=== PATIENT | female | born 1980 | race Caucasian/White ===

== ENCOUNTER 2023-02-09 00:10 | Inpatient (IN) | payer OTHER ==
[2023-02-09] MEDS ORDERED: Carboprost 250 MCG/ML AMP IM PRN (00:29)
[2023-02-09] MEDS ORDERED: hydrALAZINE 20 MG/ML VIAL SLOW IVP PRN ×2 (00:29→07:22)
[2023-02-09] MEDS ORDERED: Fentanyl 100 MCG/2 ML VIAL SLOW IVP PRN (00:29)
[2023-02-09] MEDS ORDERED: Tranexamic Acid 1,000 MG in Sodium Chloride 0.9% 250 ML 250 ML IVPB PRN (00:29)
[2023-02-09] MEDS ORDERED: Ondansetron PF 4 MG/2 ML Vial IVP PRN ×2 (00:29→01:39)
[2023-02-09] MEDS ORDERED: Acetaminophen 500 MG TAB PO PRN (00:29)
[2023-02-09] MEDS ORDERED: Ibuprofen 800 MG TAB PO PRN (00:29)
[2023-02-09] MEDS ORDERED: Promethazine HCl 25 MG/ML VIAL IM PRN ×2 (00:29→01:39)
[2023-02-09] MEDS ORDERED: Misoprostol 200 MCG TAB PR PRN (00:29)
[2023-02-09] MEDS ORDERED: Methylergonovine 0.2 MG/ML VIAL IM PRN (00:29)
[2023-02-09] MEDS ORDERED: Lidocaine 1% (PF) 30 ML VIAL SC PRN (00:29)
[2023-02-09] MEDS ORDERED: NS w/ Oxytocin 30 units 500 ML IV SCH ×2 (00:30→07:22)
[2023-02-09] MEDS ORDERED: Lactated Ringer's 1,000 ML IV SCH (00:30)
[2023-02-09] MEDS ORDERED: Penicillin G Potassium 5 MILL.UNITS in Sodium Chloride 0.9% 100 ML IVPB SCH (00:30)
[2023-02-09 00:41] VITALS: BMI 25.2
[2023-02-09 00:55] LABS: Hemoglobin 13.3 g/dL (12.0-15.5); Mean Corpuscular Hemoglobin 28.2 pg (27.0-33.0); Mean Corpuscular Volume 82.8 fl (81.6-98.3); Mean Platelet Volume 9.7 fl (7.4-10.4); Platelet Count 321 10x3/uL (150-450); RBC Distribution Width 12.7 % (11.5-14.5); Red Blood Cell (RBC) Count 4.72 10x6/uL (3.90-5.03); White Blood Cell (WBC) Count 11.8 10x3/uL (3.5-10.5)
[2023-02-09] MEDS ORDERED: Fentanyl 2 mcg/Bup 0.1% Cadd 100 ML ONE (01:00)
[2023-02-09 01:24] LABS: SARS-CoV-2 NAA Rapid Test Not Detected (NotDetected)
[2023-02-09 01:27] LABS: Syphilis Antibody Nonreactive (Nonreactive); Syphilis Antibody Index 0.04 S/CO (<1.00 Non-Reactive)
[2023-02-09 01:28] LABS: HBSAg Index 0.15 S/CO (0-0.99); Hep B Surf Ag - L&D Non-Reactive S/CO (NonReactive)
[2023-02-09] MEDS ORDERED: ePHEDrine Sulfate 50 MG/10 ML VIAL SLOW IVP PRN (01:39)
[2023-02-09] MEDS ORDERED: Moisturizing Cream (Eucerin) 113 GM JAR TOP PRN (01:39)
[2023-02-09] MEDS ORDERED: diphenhydrAMINE 50 MG/ML VIAL IVP PRN (01:39)
[2023-02-09] MEDS ORDERED: Naloxone HCl 0.4 mg/ml Vial IVP PRN ×2 (01:39)
[2023-02-09] MEDS ORDERED: Lactated Ringer's 500 ML IV PRN (01:39)
[2023-02-09] MEDS ORDERED: Acetaminophen 325 MG TAB PO PRN (01:39)
[2023-02-09] MEDS ORDERED: Communication Order-Pharmacy FS SCH (01:45)
[2023-02-09] MEDS ORDERED: Fentanyl 2 mcg/Bupivacaine 0.1% Cassette 100 ML EPIDURAL SCH (01:45)
[2023-02-09] MEDS ORDERED: Fentanyl 100 MCG/2 ML VIAL ONE (02:39)
[2023-02-09] MEDS ORDERED: Penicillin G 2.5 MILL.units 2.5 MILL.UNITS in Premix Bag 1 BAG IVPB SCH (05:00)
[2023-02-09] MEDS ORDERED: Boostrix 0.5 ML (Tdap) VIAL (>/=7 yrs of age) IM ONE (07:22)
[2023-02-09] MEDS ORDERED: Misoprostol 200 MCG TAB VAG PRN (07:22)
[2023-02-09] MEDS ORDERED: Milk Of Magnesia 30 ML UDCUP PO PRN (07:22)
[2023-02-09] MEDS ORDERED: Benzocaine-Menthol 82.5 ML CAN TOP PRN (07:22)
[2023-02-09] MEDS ORDERED: Bisacodyl 10 MG SUPP PR PRN (07:22)
[2023-02-09] MEDS ORDERED: Lanolin Ointment 7 GM TUBE TOP PRN (07:22)
[2023-02-09] MEDS ORDERED: Ibuprofen 800 MG TAB PO SCH (07:30)
[2023-02-09] MEDS: Ferrous Sulfate 325 MG TAB PO SCH ×2 (07:58→16:13)
[2023-02-09] MEDS: Docusate 100 MG CAP PO SCH ×2 (09:00→21:47)
[2023-02-09] MEDS: Prenatal Vitamin 1 TAB PO SCH (09:00)
[2023-02-09] MEDS: Ibuprofen 800 MG TAB PO SCH ×2 (15:06→17:37)
[2023-02-10] MEDS ORDERED: HYDROcodone/Acetaminophen 5/325 mg Tablet PO PRN ×2 (01:45)
[2023-02-10] MEDS: Prenatal Vitamin 1 TAB PO SCH (08:24)
[2023-02-10] MEDS: Docusate 100 MG CAP PO SCH (08:24)
[2023-02-10 12:28] VITALS: BP 112/73; TEMP 98.3
== END 2023-02-10 13:16 | disposition home or self-care (01) | DRG 807 ==
LOC: CSHLD/OP 00:10 → CSHLD 00:30 → CSHPP 06:45
PROVIDERS: ADMIT Obstetrics & Gynecology; ATTEND Obstetrics & Gynecology
PROC: 10E0XZZ Delivery of Products of Conception, External Approach (ICD-10-PCS; principal; 2023-02-09)
DX: O99.824 Streptococcus B carrier state complicating childbirth (principal); Z37.0 Single live birth; Z20.822 Contact with and (suspected) exposure to COVID-19; Z3A.40 40 weeks gestation of pregnancy; E06.3 Autoimmune thyroiditis; O99.284 Endocrine, nutritional and metabolic diseases complicating childbirth; K90.0 Celiac disease; O99.62 Diseases of the digestive system complicating childbirth
CPT/HCPCS: 36415; 51702; 85027; 86780; 86850; 86900; 86901; 87340; 99285; J2540; J3010; J3490; U0002